=== PATIENT | female | born 1995 | race African-American/Black ===

== ENCOUNTER 2024-12-11 07:50 | Inpatient (IN) | payer OTHER ==
[2024-12-11] MEDS: ELECTROLYTE-148 SOLN 1,000 ML IV SCH ×2 (09:00→22:00)
[2024-12-11 09:24] VITALS: BMI 31.6
[2024-12-11 09:25] LABS: ABSOLUTE IMMATURE GRANULOCYTES 0.05 x10^3/uL (0.0-0.031); BASOPHILS # 0.03 x10^3/uL (0.01-0.08); EOSINOPHIL % 0.9 % (0.7-5.8); EOSINOPHILS # 0.08 x10^3/uL (0.04-0.36); MCHC 33.2 g/dl (32.2-35.5); MEAN CELL VOLUME 86.2 fl (79.4-94.8); MEAN PLT VOLUME 12.8 fl (9.4-12.3); MONOCYTE # 0.69 x10^3/uL (0.24-0.86); MONOCYTE % 7.3 % (4.7-12.5); RDW 13.8 % (12.1-16.8)
[2024-12-11 09:32] LABS: INR 0.97 (0.83-1.09); PROTHROMBIN TIME (PATIENT) 10.6 SEC (9.7-13.0)
[2024-12-11 09:35] LABS: ACTIVATED PTT 28.0 SECONDS (25.2-36.5)
[2024-12-11 09:47] LABS: CO2 23.0 mmol/L (21-32); GLUCOSE,RANDOM 102.0 mg/dL (74-106)
[2024-12-11 09:51] LABS: CREATININE 0.7 mg/dL (0.55-1.3)
[2024-12-11] MEDS: DINOPROSTONE 10 MG VAGINAL SUPPOSITORY VG ONE (10:05)
[2024-12-11 11:10] LABS: HIV INTERPRETATION NEGATIVE (NEGATIVE)
[2024-12-11] MEDS ORDERED: BUTORPHANOL TARTRATE 2 MG/ML VIAL ONE (19:23)
[2024-12-11] MEDS ORDERED: PROMETHAZINE HCL 25 MG/1 ML VIAL ONE (19:23)
[2024-12-11] MEDS: BUTORPHANOL TARTRATE 2 MG/ML VIAL IVPB ONE (19:35)
[2024-12-11] MEDS: PROMETHAZINE HCL 25 MG/1 ML VIAL IVPB ONE (19:35)
[2024-12-11] MEDS: AMPICILLIN - 2 GM in SODIUM CHLORIDE 100 ML IVPB ONE (21:00)
[2024-12-11] MEDS ORDERED: AMPICILLIN SODIUM 2 GM VIAL ONE (21:14)
[2024-12-12] MEDS ORDERED: FENTANYL/BUPIVACAINE/NS/PF - PCEA - 50 ML DISP.SYRIN EP ONE ×5 (00:02→18:02)
[2024-12-12] MEDS ORDERED: NALOXONE HCL 0.4 MG/ML VIAL IVPUSH PRN (00:40)
[2024-12-12] MEDS ORDERED: OXYTOCIN 30 UNITS in 0.9% NS 30 UNIT/500 ML INFUS.BAG IVPB ONE ×2 (00:43→20:23)
[2024-12-12] MEDS ORDERED: AMPICILLIN SODIUM 1 GM VIAL ONE ×5 (00:44→16:38)
[2024-12-12] MEDS: OXYTOCIN 30 UNITS in 0.9% NS 30 UNIT/500 ML INFUS.BAG IVPB SCH (00:55)
[2024-12-12] MEDS: AMPICILLIN - 1 GM in SODIUM CHLORIDE 100 ML IVPB SCH (01:00)
[2024-12-12] MEDS: FENTANYL/BUPIVACAINE/NS/PF - PCEA - 50 ML DISP.SYRIN EP SCH (01:35)
[2024-12-12] MEDS: DEXTROSE 5%-LACTATED RINGERS 250 ML IV ONE (17:45)
[2024-12-12] MEDS: DEXTROSE 5%-LACTATED RINGERS 1,000 ML IV SCH (18:15)
[2024-12-12] MEDS ORDERED: ONDANSETRON 4 MG/2 ML VIAL ONE (20:18)
[2024-12-12] MEDS ORDERED: FENTANYL CITRATE/PF 50 MCG/ML VIAL ONE (20:22)
[2024-12-12] MEDS ORDERED: AZITHROMYCIN IVPB 500 MG/250 ML BAG IVPB ONE (20:30)
[2024-12-12] MEDS: AZITHROMYCIN IVPB 500 MG/250 ML BAG IVPB ONE (20:40)
[2024-12-12] MEDS ORDERED: KETOROLAC TROMETHAMINE 30 MG/1 ML VIAL ONE (21:30)
[2024-12-12 21:31] LABS: CORD BASE EXCESS -4.6 mmol/L (0-2); CORD HCO3 21.6 mmHg (20-29); CORD PCO2 43.6 mmHg (30-78); CORD pH 7.313 (7.14-7.44)
[2024-12-12] MEDS ORDERED: IBUPROFEN 800 MG/8 ML IJ IVPB PRN (22:01)
[2024-12-12] MEDS ORDERED: METHYLERGONOVINE MALEATE 0.2 MG/1 ML AMP IM PRN (22:01)
[2024-12-12] MEDS ORDERED: ONDANSETRON 4 MG/2 ML VIAL IVPUSH PRN (22:06)
[2024-12-12] MEDS ORDERED: OXYTOCIN 20 UNITS in 0.9% NS 20 UNIT/1,000 ML INFUS.BAG IV ONE (22:26)
[2024-12-12] MEDS: CLINDAMYCIN 600MG PREMIX IVPB 600 MG/50 ML BAG IVPB ONE (22:30)
[2024-12-12] MEDS: OXYTOCIN 20 UNITS in 0.9% NS 20 UNIT/1,000 ML INFUS.BAG IV SCH (22:40)
[2024-12-12] MEDS: GENTAMICIN 80 MG PREMIXED IVPB 80 MG/100 ML BAG IVPB ONE (23:20)
[2024-12-13] MEDS: morphine SULFATE/PF 1 MG/2 ML (2cc Syringe - QUVA) EP ONE (00:59)
[2024-12-13 07:33] LABS: ABSOLUTE IMMATURE GRANULOCYTES 0.14 x10^3/uL (0.0-0.031); BASOPHILS # 0.03 x10^3/uL (0.01-0.08); EOSINOPHIL % 0.5 % (0.7-5.8); EOSINOPHILS # 0.09 x10^3/uL (0.04-0.36); MCHC 31.3 g/dl (32.2-35.5); MEAN CELL VOLUME 90.3 fl (79.4-94.8); MEAN PLT VOLUME 12.0 fl (9.4-12.3); MONOCYTE # 1.32 x10^3/uL (0.24-0.86); MONOCYTE % 6.8 % (4.7-12.5); RDW 14.0 % (12.1-16.8)
[2024-12-13] MEDS: ACETAMINOPHEN 325 MG TABLET (FP) PO SCH (09:17)
[2024-12-13] MEDS: SIMETHICONE 80 MG TAB.CHEW (FP) PO PRN (09:17)
[2024-12-13] MEDS: PRENATAL VITAMINS W/ FOLIC ACID TABLET (FP) PO SCH (09:17)
[2024-12-13] MEDS: IBUPROFEN 600 MG TABLET (FP) PO SCH (11:01)
[2024-12-13] MEDS: LACTATED RINGERS SOLUTION 1,000 ML/1,000 ML INFUS.BAG IV ONE (21:49)
[2024-12-13] MEDS ORDERED: BISACODYL 10 MG SUPP.RECT RC PRN (22:01)
[2024-12-15 07:09] LABS: ABSOLUTE IMMATURE GRANULOCYTES 0.06 x10^3/uL (0.0-0.031); BASOPHILS # 0.02 x10^3/uL (0.01-0.08); EOSINOPHIL % 2.2 % (0.7-5.8); EOSINOPHILS # 0.23 x10^3/uL (0.04-0.36); MCHC 31.9 g/dl (32.2-35.5); MEAN CELL VOLUME 88.5 fl (79.4-94.8); MEAN PLT VOLUME 10.7 fl (9.4-12.3); MONOCYTE # 0.55 x10^3/uL (0.24-0.86); MONOCYTE % 5.2 % (4.7-12.5); RDW 14.3 % (12.1-16.8)
[2024-12-15 12:45] VITALS: BP 119/70; PULSE 71; RESP 17; TEMP 97.9
== END 2024-12-15 13:20 | disposition home or self-care (01) | DRG 540 ==
LOC: JLDR 07:50 → J3W 12-13 00:32
PROVIDERS: ADMIT Specialist; ATTEND Specialist
PROC: 10D00Z1 Extraction of Products of Conception, Low, Open Approach (ICD-10-PCS; principal; 2024-12-12)
DX: O48.0 Post-term pregnancy (principal); Z3A.40 40 weeks gestation of pregnancy; O99.824 Streptococcus B carrier state complicating childbirth; O76 Abnormality in fetal heart rate and rhythm complicating labor and delivery; Z37.0 Single live birth; O75.89 Other specified complications of labor and delivery; R07.89 Other chest pain
CPT/HCPCS: 36415; 36600; 80048; 82803; 85025; 85610; 85730; 86780; 86850; 86900; 86901; 87389; 88307-TC; 93005; 93010

== ENCOUNTER 2025-01-20 22:41 | Emergency (ER) | payer OTHER ==
[2025-01-20 22:53] VITALS: BP 110/63; PULSE 62; RESP 18; TEMP 98.1; BMI 27.8
[2025-01-21 00:04] LABS: ABSOLUTE IMMATURE GRANULOCYTES 0.02 x10^3/uL (0.0-0.031); BASOPHILS # 0.02 x10^3/uL (0.01-0.08); EOSINOPHIL % 2.7 % (0.7-5.8); EOSINOPHILS # 0.23 x10^3/uL (0.04-0.36); MCHC 32.6 g/dl (32.2-35.5); MEAN CELL VOLUME 85.7 fl (79.4-94.8); MEAN PLT VOLUME 11.8 fl (9.4-12.3); MONOCYTE # 0.65 x10^3/uL (0.24-0.86); MONOCYTE % 7.8 % (4.7-12.5); RDW 13.2 % (12.1-16.8)
[2025-01-21] MEDS ORDERED: ACETAMINOPHEN INJECTION 100 ML ONE (00:06)
[2025-01-21] MEDS ORDERED: FAMOTIDINE 20 MG/50 ML IVPB 20 MG/50 ML MG IVPB ONE (00:06)
[2025-01-21] MEDS ORDERED: MAG HYDROX/AL HYDROX/SIMETH 30 ML UNIT-DOSE CUP ONE (00:06)
[2025-01-21 00:22] LABS: CO2 29.0 mmol/L (21-32); GLUCOSE,RANDOM 103.0 mg/dL (74-106)
[2025-01-21] MEDS: MAG HYDROX/AL HYDROX/SIMETH -MYLANTA- ORAL SUSPENSION PO ONE (00:24)
[2025-01-21] MEDS: ACETAMINOPHEN 1000 MG/100 ML BAG IVPB ONE (00:24)
[2025-01-21] MEDS: SODIUM CHLORIDE 0.9% 500 ML INFUS.BAG IV ONE (00:24)
[2025-01-21 00:25] LABS: CREATININE 0.8 mg/dL (0.55-1.3); SGOT/AST 18.0 U/L (15-37); SGPT/ALT 25.0 U/L (13-61)
[2025-01-21] MEDS: FAMOTIDINE 20 MG/50 ML IVPB 20 MG/50 ML MG IVPB ONE (00:25)
[2025-01-21 00:26] LABS: TOT PROT 7.3 g/dl (6.4-8.2)
[2025-01-21 00:27] LABS: ALK PHOS 89.0 U/L (45-117)
[2025-01-21 00:30] LABS: N-TERMINAL BNP 73.3 pg/ml (5-125)
[2025-01-21] MEDS ORDERED: MAGNESIUM SULFATE IN WATER 2 GM/50 ML IVPB IVPB ONE (00:56)
[2025-01-21] MEDS: MAGNESIUM SULF 50% (8.12 MEQ/2 ML-1 GM VIAL) IVPB ONE (01:33)
== END 2025-01-21 02:00 | disposition home or self-care (01) ==
LOC: JER 22:41
PROC: 3E033GC Introduction of Other Therapeutic Substance into Peripheral Vein, Percutaneous Approach (ICD-10-PCS; principal; 2025-01-21)
PROC: 3E033GC Introduction of Other Therapeutic Substance into Peripheral Vein, Percutaneous Approach (ICD-10-PCS; 2025-01-21)
PROC: 3E033NZ Introduction of Analgesics, Hypnotics, Sedatives into Peripheral Vein, Percutaneous Approach (ICD-10-PCS; 2025-01-21)
DX: O99.893 Other specified diseases and conditions complicating puerperium (principal); R07.0 Pain in throat; R07.89 Other chest pain; R63.8 Other symptoms and signs concerning food and fluid intake; R06.02 Shortness of breath
CPT/HCPCS: 36415; 71046-TC-FY; 80053; 83735; 83880; 84484; 85025; 85379; 87637-QW; 93005; 93010; 99285-25